=== PATIENT | male | born 1970 | race Caucasian/White ===

== ENCOUNTER → 2017-12-04 | Outpatient (CLI) | payer OTHER ==
[~2017-12-04] MED LIST: ADVAIR 500/501 DISK IH; BACLOFEN10 MG PO; BUSPAR10 MG PO; CELEBREX200 MG PO; CIALIS10 MG PO; DIAMOX250 MG PO; FENTANYL1 EAC2 TD; LYRICA100 MG PO; NABUMETONE500 M1 PO; OMEPRAZOLE20 M3 PO; OXCARBAZEPINE600 MG PO; OXYCODONE HCL10 MG PO; REGLAN10 MG PO; RELAFEN500 M1 PO; SINGULAIR10 MG PO; TIZANIDINE HCL4 MG PO; TRAZODONE HCL50 MG PO; ZOLOFT100 M1 PO
== END | disposition home or self-care (01) ==
LOC: NUC 11-13 07:00
DX: R10.9 Unspecified abdominal pain (principal); Z53.8 Procedure and treatment not carried out for other reasons
CPT/HCPCS: J2805

== ENCOUNTER → 2017-12-05 | Outpatient (CLI) | payer OTHER | END | disposition home or self-care (01) | LOC: NUC 12:00 | DX: R10.9 Unspecified abdominal pain (principal) | CPT/HCPCS: 78227; A9537 ==